=== PATIENT | male | born 1945 | race Caucasian/White ===

== ENCOUNTER 2018-11-04 05:52 | Day surgery (SDC) | payer OTHER ==
[~2018-11-04] VITALS: Ht 190.5 cm; Wt 111.1 kg
[~2018-11-04 05:52] MED LIST: ALPH600C5 PO; AMLO10TA4 PO; ASPI81TA50 PO; ATOR20TA58 PO; CARV12.511 PO; DOCU100C28 PO; METF10007 PO; TAMS0.4C2 PO
[2018-11-04 06:52] LABS: BASO # 0.1 x10^3/uL (0.0-0.2); BASO % 1 % (0-3); EOS # 0.2 x10^3/uL (0.0-0.7); EOS % 2 % (0-3); HEMATOCRIT 46.4 % (39.0-53.0); HEMOGLOBIN 15.7 g/dL (13.0-17.5); LYMPH # 1.9 x10^3/uL (1.0-4.8); LYMPH % 20 % (24-48); MEAN CORPUSCULAR HEMOGLOBIN 31 pg (25-35); MEAN CORPUSCULAR HGB CONC 34 g/dL (31-37); MEAN CORPUSCULAR VOLUME 91 fL (79-100); MONO # 0.7 x10^3/uL (0.0-1.1); MONO % 8 % (0-9); NEUT # 6.7 x10^3uL (1.8-7.7); NEUT % 70 % (31-73); PLATELET COUNT 154 x10^3/uL (140-400); RED BLOOD COUNT 5.12 x10^6/uL (4.30-5.70); RED CELL DISTRIBUTION WIDTH 13.2 % (11.5-14.5); WHITE BLOOD COUNT 9.7 x10^3/uL (4.0-11.0)
[2018-11-04 06:54] LABS: ALBUMIN 4.1 g/dL (3.4-5.0); CALCIUM 9.2 mg/dL (8.5-10.1); CREATININE 1.1 mg/dL (0.7-1.3); POTASSIUM 3.7 mmol/L (3.5-5.1)
[2018-11-04] MEDS ORDERED: HYDROmorphone 2 MG/ML VIAL IV PRN (07:00)
[2018-11-04] MEDS ORDERED: IV RINGERS,LACTATED 1000ML 1,000 ML IV SCH (07:00)
[2018-11-04] MEDS ORDERED: fentaNYL PF VIAL 100 MCG/2 ML VIAL IV PRN ×2 (07:00)
[2018-11-04] MEDS ORDERED: PROCHLORPERAZINE 10 MG/2 ML VIAL. IV PRN (07:00)
[2018-11-04] MEDS ORDERED: ONDANSETRON PF 4 MG/2 ML VIAL. IV PRN (07:00)
[2018-11-04] MEDS ORDERED: LABETALOL 20 MG/4 ML DISP.SYRIN. IVP ONE (07:00)
[2018-11-04] MEDS ORDERED: MORPHINE SULFATE 2 MG/ML VIAL. IV PRN (07:00)
[2018-11-04] MEDS ORDERED: LIDOCAINE 1% PF 2 ML VIAL. ID PRN (07:00)
[2018-11-04] MEDS ORDERED: LIDOCAINE 2% JELLY 6ML IN APPLICATOR. ONE (07:04)
[2018-11-04] MEDS ORDERED: BUPIVAC MPF-EPI 0.5%-1:200000 30 ML VIAL. ONE (07:04)
[2018-11-04] MEDS ORDERED: GELATIN SPONGE SIZE 100. TP ONE (07:15)
[2018-11-04] MEDS ORDERED: GELATIN SPONGE SIZE 12-7MM SPONGE. TP ONE (07:15)
[2018-11-04] MEDS ORDERED: MIDAZOLAM HCL/PF 2 MG/2 ML VIAL. ONE (07:32)
[2018-11-04] MEDS ORDERED: fentaNYL PF VIAL 100 MCG/2 ML VIAL ONE (07:32)
[2018-11-04] MEDS ORDERED: SUCCINYLCHOLINE 200 MG/10 ML VIAL. ONE (07:32)
[2018-11-04] MEDS ORDERED: ONDANSETRON PF 4 MG/2 ML VIAL. ONE (07:33)
[2018-11-04] MEDS ORDERED: PROPOFOL 20 ML IV ONE (07:33)
[2018-11-04] MEDS ORDERED: LIDOCAINE 2% PF 5 ML VIAL. ONE (07:33)
[2018-11-04] MEDS ORDERED: KETOROLAC 30 MG/ML INJ FOR OR. INJ ONE (07:33)
[2018-11-04] MEDS ORDERED: DEXAMETHASONE SOD PHOS 20 MG/5 ML VIAL. ONE (07:33)
--- NOTE | 2018-11-04 08:10 | PDOC1 ---
History and Physical Date of Admission Date of Admission DATE: 11/04/18 TIME: 08:06 Identification/Chief Complaint Chief Complaint pain and bleeding with bowel movements Source Source: Chart review, Patient History of Present Illness History of Present Illness Mr Martinez is a 73 yo male inmate who last June had I and D of some external thrombosed hemorrhoids at the halfway. He comes now for EUA and possible hemorrhoidectomy. Past Medical History Cardiovascular: HTN Pulmonary: No pertinent hx GI: No pertinent hx Endocrine: Diabetes Past Surgical History Past Surgical History: Other (left knee, left shoulder) Family History Family History: No Significant Social History Smoke: No ALCOHOL: none Drugs: None Current Medications Current Medications Current Medications Ondansetron HCl (Zofran) 4 mg PRN Q6HRS PRN IV NAUSEA/VOMITING; Start 11/04/18 at 07:00; Stop 11/05/18 at 06:59 Fentanyl Citrate (Fentanyl 2ml Vial) 25 mcg PRN Q5MIN PRN IV MILD PAIN; Start 11/04/18 at 07:00; Stop 11/05/18 at 06:59 Fentanyl Citrate (Fentanyl 2ml Vial) 50 mcg PRN Q5MIN PRN IV MODERATE TO SEVERE PAIN; Start 11/04/18 at 07:00; Stop 11/05/18 at 06:59 Morphine Sulfate (Morphine Sulfate) 1 mg PRN Q10MIN PRN IV SEVERE PAIN; Start 11/04/18 at 07:00; Stop 11/05/18 at 06:59 Ringer's Solution 1,000 ml @ 30 mls/hr Q24H IV Last administered on 11/04/18at 06:54; Start 11/04/18 at 07:00; Stop 11/04/18 at 18:59 Lidocaine HCl (Xylocaine-Mpf 1% 2ml Vial) 2 ml PRN 1X PRN ID PRIOR TO IV START ; Start 11/04/18 at 07:00; Stop 11/05/18 at 06:59 Hydromorphone HCl (Dilaudid) 0.5 mg PRN Q10MIN PRN IV SEV PAIN, Second choice; Start 11/04/18 at 07:00; Stop 11/05/18 at 06:59 Prochlorperazine Edisylate (Compazine) 5 mg PACU PRN PRN IV NAUSEA, MRX1; Start 11/04/18 at 07:00; Stop 11/05/18 at 06:59 Cefazolin Sodium/ Dextrose 50 ml @ 100 mls/hr 1X PREOP PRN IV PRIOR TO PROCEDURE; Start 11/04/18 at 06:00; Stop 11/04/18 at 18:00 Labetalol HCl (Normodyne Iv Push) 10 mg 1X ONCE IVP Last administered on at 06:54; Start 11/04/18 at 07:00; Stop 11/04/18 at 07:01; Status DC Bupivacaine HCl/ Epinephrine Bitart (Sensorcain-Mpf Epi 0.5%-1:664188) 30 ml STK -MED ONCE .ROUTE ; Start 11/04/18 at 07:04; Stop 11/04/18 at 07:05; Status DC Lidocaine HCl (Glydo (Lidocaine) Jelly) 6 gretchen STK-MED ONCE .ROUTE ; Start at 07:04; Stop 11/04/18 at 07:05; Status DC Lidocaine HCl (Glydo (Lidocaine) Jelly) 6 gretchen STK-MED ONCE .ROUTE ; Start at 07:04; Stop 11/04/18 at 07:05; Status DC Gelatin (Gelfoam Size 12-7mm) 1 each 1X ONCE TP ; Start 11/04/18 at 07:15; Stop 11/04/18 at 07:16; Status Cancel Gelatin (Gelfoam Size 100) 1 each 1X ONCE TP ; Start 11/04/18 at 07:15; Stop at 07:16; Status DC Succinylcholine Chloride (Anectine) 200 mg STK-MED ONCE .ROUTE ; Start 11/04/18 at 07:32; Stop 11/04/18 at 07:33; Status DC Fentanyl Citrate (Fentanyl 2ml Vial) 100 mcg STK-MED ONCE .ROUTE ; Start at 07:32; Stop 11/04/18 at 07:33; Status DC Midazolam HCl (Versed) 2 mg STK-MED ONCE .ROUTE ; Start 11/04/18 at 07:32; Stop 11/04/18 at 07:33; Status DC Propofol 20 ml @ As Directed STK-MED ONCE IV ; Start 11/04/18 at 07:33; Stop 11/04 at 07:34; Status DC Lidocaine HCl (Lidocaine Pf 2% Vial) 5 ml STK-MED ONCE .ROUTE ; Start 11/04/18 at 07:33; Stop 11/04/18 at 07:34; Status DC Dexamethasone Sodium Phosphate (Decadron) 20 mg STK-MED ONCE .ROUTE ; Start 11/04 at 07:33; Stop 11/04/18 at 07:34; Status DC Ondansetron HCl (Zofran) 4 mg STK-MED ONCE .ROUTE ; Start 11/04/18 at 07:33; Stop 11/04/18 at 07:34; Status DC Ketorolac Tromethamine (Toradol For Or Only) 30 mg STK-MED ONCE INJ ; Start 11/04 at 07:33; Stop 11/04/18 at 07:34; Status DC Active Scripts Active Reported Docusate Sodium 100 Mg Capsule 1 Cap PO DAILY Atorvastatin Calcium 20 Mg Tablet 1 Tab PO DAILY Metformin Hcl 1,000 Mg Tablet 1,000 Mg PO BIDWMEALS Aspir-Low (Aspirin) 81 Mg Tablet.dr 1 Tab PO DAILY Tamsulosin Hcl 0.4 Mg Cap.er.24h 2 Cap PO DAILY Alpha Lipoic Acid 600 Mg Capsule 600 Mg PO BID Norvasc (Amlodipine Besylate) 10 Mg Tablet 10 Mg PO DAILY Carvedilol (Carvedilol) 12.5 Mg Tablet 12.5 Mg PO BIDWMEALS Allergies Allergies: Coded Allergies: No Known Drug Allergies (Unverified , 11/04/18) ROS Review of System negative with exception of present complaints Physical Exam General: Alert, Oriented X3, No acute distress HEENT: Atraumatic Lungs: Normal air movement Heart: RRR Abdomen: Soft Rectal Exam: deferred (til under anesthesia) Skin: No rashes Vitals Vitals Vital Signs Date Time Temp Pulse Resp B/P (MAP) Pulse Ox O2 Delivery O2 Flow Rate FiO2 11/04/18 06:54 66 173/88 11/04/18 06:52 99.0 20 98 Room Air 99.0 Labs Labs Laboratory Tests Test 11/04/18 06:30 White Blood Count 9.7 x10^3/uL (4.0-11.0) Red Blood Count 5.12 x10^6/uL (4.30-5.70) Hemoglobin 15.7 g/dL (13.0-17.5) Hematocrit 46.4 % (39.0-53.0) Mean Corpuscular Volume 91 fL (79-100) Mean Corpuscular Hemoglobin 31 pg (25-35) Mean Corpuscular Hemoglobin Concent 34 g/dL (31-37) Red Cell Distribution Width 13.2 % (11.5-14.5) Platelet Count 154 x10^3/uL (140-400) Neutrophils (%) (Auto) 70 % (31-73) Lymphocytes (%) (Auto) 20 % (24-48) Monocytes (%) (Auto) 8 % (0-9) Eosinophils (%) (Auto) 2 % (0-3) Basophils (%) (Auto) 1 % (0-3) Neutrophils # (Auto) 6.7 x10^3uL (1.8-7.7) Lymphocytes # (Auto) 1.9 x10^3/uL (1.0-4.8) Monocytes # (Auto) 0.7 x10^3/uL (0.0-1.1) Eosinophils # (Auto) 0.2 x10^3/uL (0.0-0.7) Basophils # (Auto) 0.1 x10^3/uL (0.0-0.2) Sodium Level 142 mmol/L (136-145) Potassium Level 3.7 mmol/L (3.5-5.1) Chloride Level 104 mmol/L (98-107) Carbon Dioxide Level 24 mmol/L (21-32) Anion Gap 14 (6-14) Blood Urea Nitrogen 13 mg/dL (8-26) Creatinine 1.1 mg/dL (0.7-1.3) Estimated GFR (Cockcroft-Gault) 66.0 Glucose Level 115 mg/dL (70-99) Calcium Level 9.2 mg/dL (8.5-10.1) Albumin 4.1 g/dL (3.4-5.0) Laboratory Tests Test 11/04/18 06:30 White Blood Count 9.7 x10^3/uL (4.0-11.0) Red Blood Count 5.12 x10^6/uL (4.30-5.70) Hemoglobin 15.7 g/dL (13.0-17.5) Hematocrit 46.4 % (39.0-53.0) Mean Corpuscular Volume 91 fL (79-100) Mean Corpuscular Hemoglobin 31 pg (25-35) Mean Corpuscular Hemoglobin Concent 34 g/dL (31-37) Red Cell Distribution Width 13.2 % (11.5-14.5) Platelet Count 154 x10^3/uL (140-400) Neutrophils (%) (Auto) 70 % (31-73) Lymphocytes (%) (Auto) 20 % (24-48) Monocytes (%) (Auto) 8 % (0-9) Eosinophils (%) (Auto) 2 % (0-3) Basophils (%) (Auto) 1 % (0-3) Neutrophils # (Auto) 6.7 x10^3uL (1.8-7.7) Lymphocytes # (Auto) 1.9 x10^3/uL (1.0-4.8) Monocytes # (Auto) 0.7 x10^3/uL (0.0-1.1) Eosinophils # (Auto) 0.2 x10^3/uL (0.0-0.7) Basophils # (Auto) 0.1 x10^3/uL (0.0-0.2) Sodium Level 142 mmol/L (136-145) Potassium Level 3.7 mmol/L (3.5-5.1) Chloride Level 104 mmol/L (98-107) Carbon Dioxide Level 24 mmol/L (21-32) Anion Gap 14 (6-14) Blood Urea Nitrogen 13 mg/dL (8-26) Creatinine 1.1 mg/dL (0.7-1.3) Estimated GFR (Cockcroft-Gault) 66.0 Glucose Level 115 mg/dL (70-99) Calcium Level 9.2 mg/dL (8.5-10.1) Albumin 4.1 g/dL (3.4-5.0) VTE Prophylaxis Ordered VTE Prophylaxis Devices: Yes VTE Pharmacological Prophylaxi: No Assessment/Plan Assessment/Plan internal hemorrhoids, possible fissure EUA, possible hemorrhoidectomy, possible LIS explained R/B/A to patient he will proceed YORDY HALL MD Nov 04, 2018 08:10
[2018-11-04] MEDS ORDERED: SEVOFLURANE 61 TO 120 MINUTES. IH ONE (08:37)
--- NOTE | 2018-11-04 09:13 | PDOC ---
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
--- NOTE | 2018-11-04 09:15 | DISCH ---
DISCHARGE INSTRUCTIONS Condition on Discharge Condition on Discharge: Stable Activity After Discharge Activity Instructions for Disc: Activity as tolerated Lifting Instructions after Dis: No heavy lifting, No pulling or pushing Diet after Discharge Diet after Discharge: Regular Wound Incision Care Other wound/incision instructi: warm moist heat, sitz bathes, warm showers Follow-Up Follow up with: two weeks office YORDY HALL MD Nov 04, 2018 09:15
[2018-11-04 09:48] VITALS: BP 143/83
--- NOTE | 2018-11-04 19:35 | OP ---
DATE OF SURGERY: 11/04/2018 PREOPERATIVE DIAGNOSIS: Pain and bleeding with stools. POSTOPERATIVE DIAGNOSES: Pain and bleeding with stools, internal hemorrhoid, anal fissure. PROCEDURE: 1. Exam under anesthesia. 2. Rigid proctoscopy. 3. Hemorrhoidectomy. 4. Lateral internal sphincterotomy. SURGEON: Yordy Hall MD ANESTHESIA: General endotracheal. BLOOD LOSS: 10. INTRAVENOUS FLUIDS: 400. DESCRIPTION OF PROCEDURE: The patient was brought to the operating suite, given a general endotracheal anesthetic and placed in a prone position. Digital rectal exam done and rigid scope placed in the anal canal and under direct vision, advanced approximately 15 cm from the anal verge where some soft brown stool was encountered. Scope was slowly removed. No abnormalities seen, save a large internal hemorrhoid at 4 o'clock. The buttocks were taped apart. Area prepped and draped in the usual sterile fashion. A 0.5% Marcaine with epinephrine infiltrated circumanally for postoperative analgesia. Inspection of the anal canal revealed a hemorrhoidal cluster at 4 o'clock. This was excised by placing a proximal hemostatic stitch of 2-0 chromic in the anal canal. The perianal skin was incised and the hemorrhoid removed with LigaSure. The mucosal rent approximated with the 2-0 chromic. With two fingers in the anal canal, the internal sphincter was identified at 3 o'clock and an 11 blade was used to divide it. A gentle 3-finger dilatation was carried out. Area checked for hemostasis. When present and a correct sponge count was obtained, a Gelfoam pack was placed in the anal canal. Sterile dressing applied. The patient taken out of the prone position, awakened from his anesthetic and taken to the recovery room in satisfactory condition. YORDY HALL MD DR: KP/larry JOB#: [id number] / [id number]
--- NOTE | 2018-11-05 18:07 | PATHOLOGY ---
[facility] Accession Number: [id number] . 01 Material submitted: . HEMORRHOIDS . 01 Clinical history: . Hemorrhoids . 02 Diagnosis: Segments of skin and squamous mucosa and underlying fibromuscular tissue, hemorrhoidectomy: - Hemorrhoids with focal chronic inflammation. ([facility] 11/05/2018) [facility]/11/05/2018 . 02 Comment: There is no evidence of malignancy. ([facility] 11/05/2018) . 02 Electronically signed: . Magdiel Olvera MD, Pathologist NPI- [id number] . 01 Gross description: . The specimen is received in formalin, labeled "Pencek, Jorge Alberto, hemorrhoids", are two pink-purple, rubbery hemorrhoids measuring 0.8 x 0.5 x 0.2 cm (bisected) and 3.4 x 1.0 x 0.5 cm (serially sectioned). The specimen is entirely submitted in A1. ([facility]; 11/04/2018) [facility] . 02 Pathologist provided ICD-10: K64.9 . 02 CPT . 678803 Specimen Comment: A courtesy copy of this report has been sent to Specimen Comment: [phone]. Specimen Comment: Report sent to Performed at: 01 [facility] [address], [place], [place] [id number] MD Kareem Callejas MD Phone: [phone] Performed at: 02 [facility] [address] [place], [place] [id number] MD Magdiel Olvera MD Phone: [phone]
== END 2018-11-04 10:15 ==
LOC: SURG 05:52 → EEVIPCON 08:00 → SURG 10:15
PROVIDERS: ATTEND Surgery
DX: K64.8 Other hemorrhoids (principal); K64.4 Residual hemorrhoidal skin tags; K60.0 Acute anal fissure; I10 Essential (primary) hypertension; E11.9 Type 2 diabetes mellitus without complications; N40.1 Benign prostatic hyperplasia with lower urinary tract symptoms; N13.8 Other obstructive and reflux uropathy; H91.90 Unspecified hearing loss, unspecified ear; Z98.890 Other specified postprocedural states; Z79.899 Other long term (current) drug therapy; Z88.6 Allergy status to analgesic agent; Z79.82 Long term (current) use of aspirin; Z79.84 Long term (current) use of oral hypoglycemic drugs
CPT/HCPCS: 36415; 46255; 80048; 82040; 82962; 85025; 88304; A7015; J0330; J0696; J1100; J2001; J2250; J2405; J2704; J3010; J3490; J1885; A4461